=== PATIENT | male | born 1970 ===

== ENCOUNTER 2022-10-05 20:39 | Emergency (ER) | payer OTHER, SELFPAY ==
--- NOTE | ~2022-10-05 | CT_ITS ---
EXAMINATION: CT HEAD WITHOUT CONTRAST CLINICAL INFORMATION: Vertigo COMPARISON: None available. TECHNIQUE: Contiguous axial imaging was performed from the skull base to vertex without intravenous administration of contrast. This CT examination was performed using dose optimization techniques as appropriate, variously including the following: *Automated exposure control *Adjustment of mA and/or kV according to patient size (this includes techniques or standardized protocols for targeted exams where dose is matched to indication/reason for exam; i.e. extremities or head) *Use of iterative reconstruction technique DLP: 638 mGy-cm FINDINGS: There is no acute intra-axial, extra-axial bleed, masses or midline shift. There is no acute infarction evolution. There is no edema. Gomez to white matter difference is maintained normal. No abnormality seen in the posterior fossa. Bone windows reveal no calvarial abnormality. There is mild mucoperiosteal thickening right posterior and middle ethmoid sinus. Right frontal sinus is hypoplastic. 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 The mastoid sinuses are clear. No scalp soft tissue abnormality seen. CT/CT head/brain wo IV con IMPRESSION: 1. No acute intracranial process seen. 2. Chronic right ethmoid sinus inflammatory changes.
[2022-10-05 20:49] VITALS: BP 170/94; PULSE 55; RESP 17; TEMP 36.2; O2SAT 98; BMI 33.4
[2022-10-05 21:37] LABS: MANUAL DIFF FLAG NO
[2022-10-05 21:39] LABS: Basophils Absolute Auto 0.1 X10*3/uL (0.0-0.2); Basophils Percent Auto 0.7 % (0-2); Eosinophils Absolute Auto 0.1 X10*3/uL (0.0-0.4); Eosinophils Percent Auto 1.9 % (0-4); Hematocrit 45.1 % (42.0-52.0); Hemoglobin 15.9 g/dl (14.0-18.0); Imm Gran Abs Auto 0.02 X10*3/uL (0.00-0.03); Imm Gran Pct Auto 0.3 % (0.0-0.4); Lymphocytes Absolute Auto 1.3 X10*3/uL (1.2-4.9); Lymphocytes Percent Auto 17.7 % (20-40); Mean Corpuscular HGB Conc 35.3 g/dl (31.0-36.0); Mean Corpuscular Hemoglobin 29.1 pg (27.0-33.0); Mean Corpuscular Volume 82.6 fL (80.0-98.0); Mean Platelet Volume 9.2 fL (9.4-12.4); Monocytes Absolute Auto 0.5 X10*3/uL (0.1-1.2); Monocytes Percent Auto 6.2 % (2-11); Neutrophils Absolute Auto 5.3 x10*3/uL (2.0-8.3); Neutrophils Percent Auto 73.2 % (45-73); Platelet Count 241 X10*3/uL (160-400); Red Blood Count 5.46 X10*6/uL (4.60-5.80); Red Cell Distribution Width 13.3 % (11.0-16.0); White Blood Count 7.2 X10*3/uL (4.8-10.8)
[2022-10-05 22:02] LABS: Alanine Aminotransferase 48 U/L (0-40); Albumin Level 4.3 g/dL (3.5-5.0); Alkaline Phosphatase 77 U/L (39-117); Anion Gap 12 (12-20); Aspartate Amino Transferase 26 U/L (5-37); Bilirubin Direct 0.1 mg/dL (0.0-0.5); Bilirubin Total 0.6 mg/dL (0.0-1.0); Blood Urea Nitrogen 21 mg/dL (9-16); Calcium 9.4 mg/dL (8.4-10.2); Carbon Dioxide 24 mmol/L (22-29); Chloride 107 mmol/L (96-108); Creatinine Clr Calc Pharmacy 117.7; Estimated Glomerular Filt Rate > 60; Glucose Random 134 mg/dL (60-115); Lipase 15 U/L (8-78); Potassium 3.7 mmol/L (3.3-5.1); Sodium 139 mmol/L (135-145); Total Protein 7.4 g/dL (6.5-8.0); Troponin-I High Sensitivity < 2.7 ng/L (<3.5-35.0)
[2022-10-06 00:20] VITALS: BP 160/94; PULSE 65; RESP 14; TEMP 36.4; O2SAT 99
[2022-10-06 01:23] VITALS: BP 168/100; PULSE 60; RESP 16; TEMP 36.6
--- NOTE | 2022-10-06 03:53 | ED.DIZZY ---
HPI - Dizziness General Chief Complaint: Dizziness Stated Complaint: Dizziness/n/v/sweats Time Seen by Provider: 10/06/22 02:15 History of Present Illness HPI Narrative: patient is 52 years old after eating tonight patient felt very dizzy. The dizziness was a spinning sensation it is worse when he closes his eyes. He started vomiting. He felt very lightheaded. Patient never actually had syncope. Did not have any chest pain during that time. Patient vomited at least 6 times. He cannot recall the symptoms worse with movement. Never had something similar to this before. Did not have any weakness in 1 arm or 1 leg. There has been no changes in his medication no changes in his food. A family member had similar food without any symptoms. Related Data Previous Rx's Medication Instructions Recorded meclizine 25 mg tablet 25 mg PO TID PRN dizziness #14 tabs 10/06/22 ondansetron 4 mg disintegrating 4 mg PO TID PRN nausea and 10/06/22 tablet vomiting 5 days #10 tabs Allergies Allergy/AdvReac Type Severity Reaction Status Date / Time No Known Allergies Allergy Verified 10/05/22 20:54 Review of Systems Review of Systems: Positive dizziness spinning sensation Yes all other systems are reviewed and are negative [facility] Past Medical History Attestation statement: The following information was validated with the patient. Social History Social History Alcohol intake: current Alcohol intake frequency: a few times a month Smoked in Last 30 Days: No Use of substances other than those prescribed or required for medical reasons: No Advance Directives: No Advance Directives Information Provided: Yes Physical Exam Vital Signs: Vital Signs: Last Vital Signs Temp 97.4 F 10/06/22 03:57 Pulse 58 10/06/22 03:57 Resp 18 10/06/22 03:57 BP 158/95 H 10/06/22 03:57 Pulse Ox 98 10/06/22 03:57 O2 Del Method Room Air 10/06/22 03:57 BMI result Body Mass Index 33.4 Appearance: Alert. Oriented X3. No acute distress. Eyes: Pupils equal, round and reactive to light. ENT: Pharynx normal. Neck: Normal inspection. Neck supple. No lymph nodes noted. No crepitus CVS: Normal heart rate and rhythm. Pulses normal. Normal S1 and S2 Respiratory: No respiratory distress. Breath sounds normal. No Wheezing. No rales Abdomen: Soft and nontender. No rigidity. No distention. good BS x4 Skin: Skin warm and dry. Normal skin color. Normal skin turgor. Extremities: No lower extremity edema. Neurovascular intact to all extremities. No Lacerations. No Rash Neuro: Oriented X 3. No motor deficit. No sensory deficit. Moving all extermities. No slurred speech. Cranial nerves 2-12 intact [id number] intact rapid alternating movement intact ambulates with normal gait Medications Administered Discontinued Medications Generic Name Dose Route Start Last Admin Trade Name Freq PRN Reason Stop Dose Admin Sodium Chloride 1,000 mls @ 999 mls/hr 10/06/22 04:00 10/06/22 04:34 Ns IV 10/06/22 05:00 999 mls/hr .Q1H1M NAS Administration Sodium Chloride 1,000 mls @ 999 mls/hr 10/06/22 04:00 10/06/22 04:35 Ns IV 10/06/22 05:00 999 mls/hr .Q1H1M NAS Administration Ondansetron HCl 4 mg 10/06/22 03:51 10/06/22 04:34 Ondansetron Hcl 4 Mg/2 Ml Vial IVPUSH 10/06/22 03:52 4 mg ONCE ONE Administration Medical Decision Making Medical Decision Making [facility] Narrative: CT scan of the head was grossly negative for any acute evidence of bleeding. No mass noted. Patient's hemoglobin is 15.9 no signs of anemia. Patient's kidney function is normal. LFTs are normal. Patient's lipase is normal. No evidence for biliary disease. Troponin was less than 2.7. my interpretation of patient's EKG showed a sinus rhythm heart rate is 58 [place] QRS QTC within normal limits there is no acute ST segment elevation. Symptom medically feels improved with IV fluids. Patient in no distress. Symptom by the time he got here was not reproducible. Will discharge patient home. Differential Diagnosis Differential Diagnoses: The differential diagnosis associated with the presentation includes Peripheral vertigo, dehydration, gastroenteritis, food poisoning Lab Data [facility] Lab Attestation statement: I reviewed the patient's lab results. 10/05/22 21:32 10/05/22 21:32 Labs: Lab Results 10/05/22 10/05/22 10/05/22 Range/Units 21:32 21:32 21:32 WBC 7.2 (4.8-10.8) X10*3/uL RBC 5.46 (4.60-5.80) X10*6/uL Hgb 15.9 (14.0-18.0) g/dl Hct 45.1 (42.0-52.0) % MCV 82.6 (80.0-98.0) fL MCH 29.1 (27.0-33.0) pg MCHC 35.3 (31.0-36.0) g/dl RDW 13.3 (11.0-16.0) % Plt Count 241 (160-400) X10*3/uL MPV 9.2 L (9.4-12.4) fL Immature Gran % (Auto) 0.3 (0.0-0.4) % Neut % (Auto) 73.2 H (45-73) % Lymph % (Auto) 17.7 L (20-40) % Lyman % (Auto) 6.2 (2-11) % Eos % (Auto) 1.9 (0-4) % Baso % (Auto) 0.7 (0-2) % Lymph # (Auto) 1.3 (1.2-4.9) X10*3/uL Lyman # (Auto) 0.5 (0.1-1.2) X10*3/uL Eos # (Auto) 0.1 (0.0-0.4) X10*3/uL Baso # (Auto) 0.1 (0.0-0.2) X10*3/uL Abs Immat Gran (auto) 0.02 (0.00-0.03) X10*3/uL Absolute Neuts (auto) 5.3 (2.0-8.3) x10*3/uL Absolute Nucleated RBC 0.000 (0.0-0.012) X10*3/uL Nucleated RBC % (auto) 0.0 (0.0-0.2) /100WBC Sodium 139 (135-145) mmol/L Potassium 3.7 (3.3-5.1) mmol/L Chloride 107 (96-108) mmol/L Carbon Dioxide 24 (22-29) mmol/L Anion Gap 12 (12-20) BUN 21 H (9-16) mg/dL Creatinine 0.85 (0.5-1.4) mg/dL Estim Creat Clear Calc 117.7 Estimated GFR > 60 Random Glucose 134 H (60-115) mg/dL Calcium 9.4 (8.4-10.2) mg/dL Total Bilirubin 0.6 (0.0-1.0) mg/dL Direct Bilirubin 0.1 (0.0-0.5) mg/dL AST 26 (5-37) U/L ALT 48 H (0-40) U/L Alkaline Phosphatase 77 (39-117) U/L Troponin I High Sens < 2.7 (<3.5-35.0) ng/L Total Protein 7.4 (6.5-8.0) g/dL Albumin 4.3 (3.5-5.0) g/dL Lipase 15 (8-78) U/L // Range/Units 04:01 WBC (4.8-10.8) X10*3/uL RBC (4.60-5.80) X10*6/uL Hgb (14.0-18.0) g/dl Hct (42.0-52.0) % MCV (80.0-98.0) fL MCH (27.0-33.0) pg MCHC (31.0-36.0) g/dl RDW (11.0-16.0) % Plt Count (160-400) X10*3/uL MPV (9.4-12.4) fL Immature Gran % (Auto) (0.0-0.4) % Neut % (Auto) (45-73) % Lymph % (Auto) (20-40) % Lyman % (Auto) (2-11) % Eos % (Auto) (0-4) % Baso % (Auto) (0-2) % Lymph # (Auto) (1.2-4.9) X10*3/uL Lyman # (Auto) (0.1-1.2) X10*3/uL Eos # (Auto) (0.0-0.4) X10*3/uL Baso # (Auto) (0.0-0.2) X10*3/uL Abs Immat Gran (auto) (0.00-0.03) X10*3/uL Absolute Neuts (auto) (2.0-8.3) x10*3/uL Absolute Nucleated RBC (0.0-0.012) X10*3/uL Nucleated RBC % (auto) (0.0-0.2) /100WBC Sodium (135-145) mmol/L Potassium (3.3-5.1) mmol/L Chloride (96-108) mmol/L Carbon Dioxide (22-29) mmol/L Anion Gap (12-20) BUN (9-16) mg/dL Creatinine (0.5-1.4) mg/dL Estim Creat Clear Calc Estimated GFR Random Glucose (60-115) mg/dL Calcium (8.4-10.2) mg/dL Total Bilirubin (0.0-1.0) mg/dL Direct Bilirubin (0.0-0.5) mg/dL AST (5-37) U/L ALT (0-40) U/L Alkaline Phosphatase (39-117) U/L Troponin I High Sens < 2.7 (<3.5-35.0) ng/L Total Protein (6.5-8.0) g/dL Albumin (3.5-5.0) g/dL Lipase (8-78) U/L Independent Interpretation I performed an independent interpretation of an: EKG Interpretation: sinus heart rate is 50 [place] QRS QT within normal limits is no acute ST segment elevation noted Radiology Impression Discussion of test interpretation with radiology: I have reviewed the radiologist's reading. Radiologist Impression: CT head negative Prescription Management Zofran for nausea Discharge Plan Discharge Clinical Impression: Benign paroxysmal positional vertigo Patient Disposition: Home, Self-Care Instructions: Vertigo (DC), Dizziness (ED) Prescriptions: New ondansetron 4 mg tablet,disintegrating 4 mg PO TID PRN (Reason: nausea and vomiting) 5 Days Qty: 10 0RF meclizine 25 mg tablet 25 mg PO TID PRN (Reason: dizziness) Qty: 14 0RF Referrals: Physician,Unknown J [Primary Care Provider] - 2 days Stand Alone Forms: Work/School Release
[2022-10-06 03:57] VITALS: BP 158/95; PULSE 58; RESP 18; TEMP 36.3; O2SAT 98
--- NOTE | 2022-10-06 04:02 | MHC.EDTECH ---
Labs obtained,Vitals taken,Patient is resting comfortably at this time. Call perez within reach
[2022-10-06 04:29] LABS: Troponin-I High Sensitivity < 2.7 ng/L (<3.5-35.0)
[2022-10-06] MEDS: 0.9 % Sodium Chloride 1,000 ML 999 ML IV ×2 (04:34→04:35)
[2022-10-06] MEDS: ondansetron HCL 4 MG/2 ML VIAL IVPUSH (04:34)
--- NOTE | 2022-10-06 05:57 | ECG_ITS ---
Test Reason : DIZZINESS Blood Pressure : / mmHG Vent. Rate : 053 BPM Atrial Rate : 053 BPM P-R Int : 176 ms QRS Dur : 096 ms QT Int : 448 ms P-R-T Axes : 084 016 023 degrees QTc Int : 420 ms Sinus bradycardia with sinus arrhythmia Otherwise normal ECG No previous ECGs available Referred By: Lidya Pearce Electronically Signed By:ADAMS RANKIN
[2022-10-06 06:10] VITALS: BP 144/67; PULSE 60; RESP 16; TEMP 36.4; O2SAT 97
--- NOTE | 2022-10-06 06:11 | MHC.EDTECH ---
Patient was incont. of a large amount of urine,pt was cleaned and bed linen was changed,pt was repositioned to comfort. Call perez within reach
--- NOTE | 2022-10-06 06:40 | PC.NURSE ---
iv removed at discharge. pt calm and cooperative a+O x4 pt ambulatory at discharge. pt provided with discharge plan. pt verbalized understanding discharge plan
== END 2022-10-06 07:24 | disposition home or self-care (01) ==
PROVIDERS: Emergency Provider Emergency Medicine Emergency Medical Services
DX: H81.10 Benign paroxysmal vertigo, unspecified ear (principal)
CPT/HCPCS: 36415; 70450; 80048; 80076; 83690; 84484; 85025; 93005; 96361; 96374; 99284; J2405